=== PATIENT | female | born 1985 | race Hispanic/Latino ===

== ENCOUNTER 2017-10-12 09:24 | Emergency (ER) | payer OTHER ==
[~2017-10-12] VITALS: Ht 172.7 cm; Wt 86.2 kg
[~2017-10-12 09:24] MED LIST: BENZTROPINE ME0.5 M1 PO; DESMOPRESS10 MCG/0.2 NAS; DIPHENHYDRAMINE50 M1 PO; DIVALPROEX SOD250 M3 PO; DIVALPROEX SOD500 M3 PO; LEVOTHYROXINE75 MCG PO; MULTI-DAY PLUS1 EACH PO; ORTHO-NOVUM 1-1 EACH PO; POLYETHYLENE G255 GM PO; RISPERIDONE3 M1 PO; SERTRALINE HCL100 MG PO
[2017-10-12 10:17] LABS: ABSOLUTE BASOPHIL COUNT 0 /CUMM (0.0-0.2); ABSOLUTE EOSINOPHIL COUNT 0.1 /CUMM (0.0-0.7); ABSOLUTE GRANULOCYTE CT 5.8 /CUMM (1.4-6.5); ABSOLUTE LYMPH COUNT 1.7 /CUMM (1.2-3.4); ABSOLUTE MONOCYTE COUNT 0.8 /CUMM (0.10-0.60); BASOPHIL % 0.1 % (0.0-2.0); EOSINOPHIL % 1.5 % (0-5); GRANULOCYTE % 69.1 % (42.2-75.2); HEMATOCRIT 36.7 % (37-47); MEAN CORPUSCULAR HGB 30.7 PG (27.0-31.0); MEAN CORPUSCULAR HGB CONC 34.2 G/DL (33.0-37.0); MEAN CORPUSCULAR VOLUME 89.9 FL (81.0-99.0); MEAN PLATELET VOLUME 7.6 FL (7.4-10.4); PLATELET COUNT 233 /CUMM (130-400); RBC DISTRIBUTION WIDTH 12.4 % (11.5-14.5); RED BLOOD CELL CT 4.09 /CUMM (4.20-5.40); WHITE BLOOD CELL COUNT 8.4 /CUMM (4.8-10.8)
--- NOTE | 2017-10-12 11:29 | ED PSYCHIATRIC COMPLAINT ---
History of Present Illness General Chief Complaint: Psychiatric Related Complaint Stated Complaint: JAN ARRIOLA EVAL Source: patient Exam Limitations: no limitations Vital Signs & Intake/Output Vital Signs & Intake/Output Vital Signs Date Time Temp Pulse Resp B/P B/P Pulse O2 O2 Flow FiO2 Mean Ox Delivery Rate 10/12 1920 98.5 82 18 119/64 96 Room Air ED Intake and Output 10/13 0000 09 1200 Intake Total Output Total Balance Patient 190 lb Weight Weight Estimated Measurement Method Allergies Coded Allergies: hydroxyzine (From VIST[facility]) (PER PT MED LIST - UNKNOWN 08/17/17) Reconcile Medications Desmopressin Acetate 10 MCG/SPRAY (0.1 ML) SPRAY.PUMP 2 SPRAY FREDY QHS LEFT NOSTRIL - DI (Reported) Diphenhydramine HCl 50 MG CAPSULE 1 CAP PO 1300 AGITATION (Reported) Divalproex Sodium (Divalproex Sodium ER) 250 MG TAB.ER.24H 1 TAB PO QAM MENTAL HEALTH (Reported) Divalproex Sodium (Divalproex Sodium ER) 500 MG TAB.ER.24H 2 TAB PO BID MENTAL HEALTH (Reported) Levothyroxine Sodium 75 MCG TABLET 1 TAB PO DAILY THYROID (Reported) Multivitamin/Iron/Folic Acid (Multi-Day Plus Iron Tablet) 18 MG IRON-400 MCG TABLET 1 TAB PO QPM SUPPLEMENT (Reported) Norethindrone-Ethinyl Estrad (Ortho-Novum 1-35-28 Tablet) 1 MG-35 MCG TABLET 1 TAB PO DAILY CONTROL (Reported) Polyethylene Glycol 3350 17 GRAM/DOSE POWDER 17 GM PO QAM GI (Reported) Risperidone 3 MG TABLET 1 TAB PO BID MENTAL HEALTH (Reported) Sertraline HCl 100 MG TABLET 1 TAB PO QAM MENTAL HEALTH (Reported) Triage Note: PT JAN FROM [facility] FOR VIOLENT OUTBURST TOWARDS STAFF THIS AM. PT WITH H/O OCD, BIPOLAR AND MILD MR. EMS STATES PT DID NOT RECEIVE BREAKFAST ON TIME AND SHE STARTED TO HIT AND SCRATCH STAFF. PT ARRIVES TO ED A/OX3. CALM/COOPERATIVE THUS FAR. [facility] STAFF MEMBER WITH PT, DID NOT WITNESS EVENT. AWAITING PROVIDER EVAL. Triage Nurses Notes Reviewed? yes Onset: Abrupt Duration: day(s): Timing: recent history : No Patient currently breastfeeds: No HPI: 32-year-old female comes into the emergency room with a history of MR that was having violent outbursts at the facility today. The patient was apparently swinging at the staff and pulling at shirts and screaming and yelling. She has a history of bipolar. She was brought in for further evaluation. There is no SI or HI. She is back to her normal baseline at this point. (Phillip Hilario) Past History Travel History Traveled to [place] past 21 day No Medical History Any Pertinent Medical History? see below for history Neurological: mild mental retardation EENT: NONE Musculoskeletal: scoliosis Psychiatric: bipolar disease, OCD Endocrine: hyperthyroidism Surgical History Surgical History: non-contributory Psychosocial History Who do you live with Other (see notes) What is your primary language Filipino Tobacco Use: Never used ETOH Use: denies use Illicit Drug Use: denies illicit drug use Family History Hx Contributory? No (Phillip Hilario) Review of Systems Review of Systems Constitutional: Reports: no symptoms. EENTM: Reports: no symptoms. Respiratory: Reports: no symptoms. Cardiovascular: Reports: no symptoms. GI: Reports: no symptoms. Genitourinary: Reports: no symptoms. Musculoskeletal: Reports: no symptoms. Skin: Reports: no symptoms. Neurological/Psychological: Reports: see HPI. Hematologic/Endocrine: Reports: no symptoms. Immunologic/Allergic: Reports: no symptoms. All Other Systems: Reviewed and Negative (Phillip Hilario) Physical Exam Physical Exam General Appearance: well developed/nourished, mild distress Head: atraumatic Eyes: Bilateral: normal appearance. Ears, Nose, Throat: normal ENT inspection, hearing grossly normal Neck: normal inspection Respiratory: no respiratory distress Cardiovascular: regular rate/rhythm Extremities: normal range of motion Neurological/Psychiatric: awake, alert Appearance/Memory/Insight: appropriate appearance Behavoir/Eye Contact/Speech: cooperative Thoughts/Hallucinations: no apparent hallucination Skin: intact, normal color, warm/dry SAD PERSONS Done? patient not suicidal (Phillip Hilario) Progress Differential Diagnosis: dementia, drug intoxication, drug overdose, drug withdrawal, depression, anxiety, bipolar (Phillip Hilario) Plan of Care: Orders Procedure Date/time Status Regular Diet 10/12 L Active URINE DRUGS OF ABUSE 10/12 938 Complete URINE 10/12 938 Complete ETHANOL 10/12 938 Complete COMPREHENSIVE METABOLIC PANEL 10/12 938 Complete CBC WITHOUT DIFFERENTIAL 10/12 938 Complete ED CRISIS PSYCH CONSULT 10/12 938 Active Laboratory Tests 10/12/17 1037: Urine Opiates Screen < 100, Methadone Screen 54, Barbiturate Screen < 60, Ur Phencyclidine Scrn < 6.00, Amphetamines Screen < 100, U Benzodiazepines Scrn 184 , Urine Cocaine Screen < 50, Urine Cannabis Screen < 5.00, Urine Test NEGATIVE 10/12/17 1010: Anion Gap 7, Estimated GFR > 60, BUN/Creatinine Ratio 17.5, Glucose 101 H, Calcium 9.5, Total Bilirubin 0.3, AST 26, ALT 25, Alkaline Phosphatase 73, Total Protein 7.1, Albumin 3.7, Globulin 3.4, Albumin/Globulin Ratio 1.1, CBC w Diff NO MAN DIFF REQ, RBC 4.09 L, MCV 89.9, MCH 30.7, MCHC 34.2, RDW 12.4, MPV 7.6, Gran % 69.1, Lymphocytes % 20.3 L, Monocytes % 9.0, Eosinophils % 1.5, Basophils % 0.1, Absolute Granulocytes 5.8, Absolute Lymphocytes 1.7, Absolute Monocytes 0.8 H, Absolute Eosinophils 0.1, Absolute Basophils 0, Serum Alcohol < 10.0 Comments: Patient was signed out to me by LINDSEY Rodríguez at 4 PM. Following crisis evaluation patient is cleared for discharge to nursing home. (Hayley Jean) Departure Departure Condition: Stable Clinical Impression Primary Impression: Bipolar 1 disorder Referrals: Conchis Otto APRN (PCP/Family) Departure Forms: Customer Survey General Discharge Information (Phillip Hilario) Departure Disposition: HOME OR SELF CARE (Hayley Jean) PA/FISHER SPONGE HOOKING Co-Sign Statement Statement: ED Attending supervision documentation- x I saw and evaluated the patient. I have also reviewed all the pertinent lab results and diagnostic results. I agree with the findings and the plan of care as documented in the PA's/FISHER SPONGE HOOKING's documentation. [] I have reviewed the ED Record and agree with the PA's/FISH[employer] SPONGE HOOKING's documentation. [] Additions or exceptions (if any) to the PAs/FISHER SPONGE HOOKING's note and plan are summarized below: [] (Jakub DONG,Doyle)
--- NOTE | 2017-10-12 17:48 | ED PSYCH CRISIS CONSULTATION ---
Crisis Consult Basic Assessment Date of Consult: 10/12/17 Responsible Person/Accompanied By: Self, Sn[facility] staff Insurance Authorization: Insurance #1: Insurance name: KACIE BRANDON Phone number: Policy number: [id number] Group number: Authorization number: ED Provider: Patient's ED Provider: Hayley Jean Primary Care Physician: Patient's PCP: Conchis Otto APRN PCP's Current Psychiatrist: Yuly Harris [phone] Chief Complaint: Psychiatric Related Complaint Patient's Quote: " I didn't get my hashbrown and eggs" Present Illness: Pt is a 32 year old female BIBA from [facility] due to agressive behaviors towards staff after not getting her breakfast. She has been living there since April. She is accompanied by her retirement staff member that left this afternoon. Pt did become agigated due to not being able to have a bowel movement. The patient presents as alert, oriented and cooperative after getting something to drink. She states that she was in the bathroom and was having difficultly going to the bathroom and became upset, when staff asked her to leave the bathroom. She is still complaining about not having a bowel movement but also reports not being hungry at this time when Crisis offered her a snack. Pt states her mood has been good lately, she sleeps well and has been eating well. She states that she does not have any thoughts to harm herself at this time and does not have any thoughts to harm anyone else. The patient is motivated to be discharged and go back to the retirement so she can take a shower. Pt expresses she loves the day program that she attends, she reports cooking, baking, coloring, doing arts and crafts, they go on trips to the movies and the pool. Pt reports feeling safe at the retirement. Crisis informed retirement staff to contact pt's provider about her coming to [facility]. . The patient was unable to participate in competing the C-SSRS, as she had trouble understanding questions asked. Patient's Address: [address] [place] [address] Other Phone Number: Who Do You Live With? Other (see notes) Family/Informants Interviewed: Mold Cleaner was able to contact Marina [phone], director of retirement. She explained that the pt became upset about not getting her breakfast and started threatening and attacking staff. Marina reports that pt eats three times a day and is fed well. She reports that pt is given activia for bowel movements and did not eat it before she was brought to [facility]. Marina reports that if her staff cannot redirect the pt they are told to call [facility] authorities because of her uncontrollable rage and aggresive behavior. Marina reports not concerns about pt going back to the retirement. If there are any questions to reach her. Allergies - Coded Allergies: hydroxyzine (From VISTARIL) (PER PT MED LIST - UNKNOWN 08/17/17) Current Medications - Scheduled Medications Desmopressin Acetate 10 MCG/SPRAY (0.1 ML) SPRAY.PUMP 2 SPRAY FREDY QHS LEFT NOSTRIL - DI #5 (Reported) Entered as Reported by Lisa Sanders on 08/17/172103 Diphenhydramine HCl 50 MG CAPSULE 1 CAP PO 1300 AGITATION #30 (Reported) Entered as Reported by Lisa Sanders on 08/17/172104 Divalproex Sodium (Divalproex Sodium ER) 250 MG TAB.ER.24H 1 TAB PO QAM MENTAL HEALTH #30 (Reported) Entered as Reported by Lisa Sanders on 08/17/17 2100 Divalproex Sodium (Divalproex Sodium ER) 500 MG TAB.ER.24H 2 TAB PO BID MENTAL HEALTH #120 (Reported) Entered as Reported by Lisa Sanders on 08/17/172100 Levothyroxine Sodium 75 MCG TABLET 1 TAB PO DAILY THYROID #30 (Reported) Entered as Reported by Lisa Sanders on 08/17/172100 Multivitamin/Iron/Folic Acid (Multi-Day Plus Iron Tablet) 18 MG IRON-400 MCG TABLET 1 TAB PO QPM SUPPLEMENT (Reported) Entered as Reported by Lisa Sanders on 08/17/172102 Norethindrone-Ethinyl Estrad (Ortho-Novum 1-35-28 Tablet) 1 MG-35 MCG TABLET 1 TAB PO DAILY CONTROL (Reported) Entered as Reported by Lisa Sanders on 08/17/172103 Polyethylene Glycol 3350 17 GRAM/DOSE POWDER 17 GM PO QAM GI #510 (Reported) Entered as Reported by Lisa Sanders on 08/17/172104 Risperidone 3 MG TABLET 1 TAB PO BID MENTAL HEALTH #60 (Reported) Entered as Reported by Lisa Sanders on 08/17/172101 Sertraline HCl 100 MG TABLET 1 TAB PO QAM MENTAL HEALTH #30 (Reported) Entered as Reported by Lisa Sanders on 08/17/172101 Laboratory Results: Laboratory Tests 10/12/17 1037: Urine Opiates Screen < 100, Methadone Screen 54, Barbiturate Screen < 60, Ur Phencyclidine Scrn < 6.00, Amphetamines Screen < 100, U Benzodiazepines Scrn 184 , Urine Cocaine Screen < 50, Urine Cannabis Screen < 5.00, Urine Test NEGATIVE 10/12/17 1010: Anion Gap 7, Estimated GFR > 60, BUN/Creatinine Ratio 17.5, Glucose 101 H, Calcium 9.5, Total Bilirubin 0.3, AST 26, ALT 25, Alkaline Phosphatase 73, Total Protein 7.1, Albumin 3.7, Globulin 3.4, Albumin/Globulin Ratio 1.1, CBC w Diff NO MAN DIFF REQ, RBC 4.09 L, MCV 89.9, MCH 30.7, MCHC 34.2, RDW 12.4, MPV 7.6, Gran % 69.1, Lymphocytes % 20.3 L, Monocytes % 9.0, Eosinophils % 1.5, Basophils % 0.1, Absolute Granulocytes 5.8, Absolute Lymphocytes 1.7, Absolute Monocytes 0.8 H, Absolute Eosinophils 0.1, Absolute Basophils 0, Serum Alcohol < 10.0 Past History Past Medical History Neurological: mild mental retardation EENT: NONE Musculoskeletal: scoliosis Psychiatric: bipolar disease, OCD Endocrine: hyperthyroidism Past Surgical History Surgical History: non-contributory Psychosocial History Strengths/Capabilities: The patient resides in a [facility] and attends a Day Program, which she enjoys. Physical Limitations (Interventions): None noted Psychiatric Treatment History Psych Treatment Psychiatric Treatment Yes Inpatient Treatment Yes Outpatient Treatment Yes Location of Treatment [facility] and with [facility] Reason for Treatment Bipolar, OCD, Intellectual Disability Dates of Treatment current with [facility] Response to Treatment ongoing Diagnosis by History: By History- Moderate mental retardation Obsessive Compulsive Disorder Thyroid disorder Diabetes Substance Use/Abuse History Drug Use/Abuse Substances Used/Abused No First Use n/a Last Used n/a How much used/taken n/a How often n/a For how long n/a Route of use n/a Substance Abuse Treatment Substance Abuse Treatment Past Substance Abuse [place] No Inpatient Treatment No Outpatient Treatment No Location of Treatment n/a Reason for Treatment n/a Dates of Treatment n/a Response to Treatment n/a Comments: n/a Current Mental Status Mental Status Orientation: Person, Place, Situation Affect: WNL Speech: Mumbled Neuro-vegetative: WNL Appearance Appearance- Dress/Hygiene: pt was dressed in hospital scrubs Behaviors Thought Process: WNL Thought Content: WNL Memory: WNL Insight: Fair SI/HI Risk Assessment Past Suicidal Ideation/Attempts Yes Current Suicidal Ideation/Att No Past Homicidal Ideation/Att: Yes Current Homicidal Ideation/Attempts No Degree of Intent: Self Destructive/No Danger To: Others, Self Risk Factors: high anxiety/distress, SA/MH hospitalized, Intellectual disability Lethality Ratin PTSD Checklist PTSD Done? patient declined ED Management Sitter: Yes Restraints: No DSM5/PS Stressors/Medical Prob Diagnosis' (DSM 5, Stressors, Medical): F31.9 Unspecified Bipolar Disorder F79 Unspecified Intellectual Disability Medical: Diabetes and Hyperthyroidism per hx. Stressors: Issues related to food and to using the bathroom. Current GAF: 43 Departure Disposition Psych Medical Clearance Date: 10/12/17 Medically Cleared at: 1710 Time Started: 1710 Time Ended: 1730 Psychiatrist Consulted: Jorge Mccarthy MD Date Disposition Established: 10/12/17 Time Disposition Established: 174 Plan for Disposition - Modality: [facility] Facility: [facility] Follow-up Appt Date: 10/12/17 Contact: Marina Rationale for Disposition: Pt does not meet inpatient critieria and will be discharged back to her retirement. Pt is not currently reporting SI or HI. Pt is motivated to go back to retirement and go back to her routine. [facility] director does not have any concerns about pt returning. Dr. Mccarthy was consulted and agreed to discharge pt back to retirement, providers and day program activities. Referrals Conchis Otto APRN (PCP/Family)
[2017-10-12 19:20] VITALS: BP 119/64
== END 2017-10-12 19:21 ==
LOC: ERH 09:24
PROVIDERS: Physician Assistant Medical
DX: F31.9 Bipolar disorder, unspecified (principal); F70 Mild intellectual disabilities
CPT/HCPCS: 80307; 81025; G0480